=== PATIENT | female | born 1995 | race Two or more races ===

== ENCOUNTER 2022-03-14 17:12 | Emergency (ER) | payer SELFPAY ==
[~2022-03-14] VITALS: Ht 165.1 cm; Wt 54.4 kg
[2022-03-14 17:13] VITALS: BP 106/71
--- NOTE | 2022-03-14 17:15 | NUR ---
PATIENT BIBA TO BED 5.
--- NOTE | 2022-03-14 17:15 | NUR ---
26 F PATIENT PRESENTS TO ED WITH ALOC . PT IS AOX1; SCREAMING AND WANTS TO GO HOME. DENIES N/V/D; SKIN IS PINK/WARM/DRY; LUNGS CLEAR BL; HR EVEN AND REGULAR; PT DENIES ANY FEVER, CP, SOB, OR COUGH AT THIS TIME; DENIES PAIN AT THIS TIME; VSS; PATIENT POSITIONED FOR COMFORT; HOB ELEVATED; BEDRAILS UP X2; ON 4 POINT RESTRAINTS. BED DOWN. ER MD MADE AWARE OF PT STATUS. DENIES PMH DENIES MEDS NKA
[2022-03-14] MEDS ORDERED: MIDAZOLAM 5 MG/5 ML VIAL ONE (17:16)
[2022-03-14] MEDS ORDERED: MIDAZOLAM 5 MG/5 ML VIAL IM ONE (17:20)
--- NOTE | 2022-03-14 17:23 | NUR ---
ADMINISTERED VERSED 4MG IM PER ER MD ORDER.
[2022-03-14 17:52] LABS: BASOPHILS # (AUTO) 0.1 K/uL (0.00-0.22); MONOCYTES # (AUTO) 0.4 K/uL (0.8-1.0)
[2022-03-14 17:55] LABS: BASOPHILS % (AUTO) 0.7 % (0.0-2.0); EOSINOPHILS % (AUTO) 0.3 % (0.0-4.0); HEMATOCRIT 40.4 % (36-48); HEMOGLOBIN 13.7 g/dL (12.0-16.0); LYMPHOCYTES % (AUTO) 21.6 % (20.5-51.1); MEAN CORPUSCULAR HEMOGLOBIN 33 pg (27-31); MEAN CORPUSCULAR HGB CONC 34 g/dL (33-37); MONOCYTES % (AUTO) 4.1 % (1.7-9.3); NEUTROPHILS # (AUTO) 6.8 K/uL (1.8-7.7); NEUTROPHILS % (AUTO) 73.3 % (42.2-75.2); PLATELET COUNT (AUTO) 131 K/uL (140-450); RED CELL DISTRIBUTION WIDTH 15.7 % (11.6-13.7); WHITE BLOOD COUNT (AUTO) 9.3 K/uL (4.8-10.8)
[2022-03-14 18:10] LABS: ALBUMIN 3.7 g/dL (3.4-5.0); ANION GAP 14.9 (8-16); ASPARTATE AMINOTRANSFERASE 28 U/L (15-37); CHLORIDE 109 mmol/L (98-107); CREATININE 0.5 mg/dL (0.6-1.3); GFR ARICAN-AMERICAN 193 mL/min (>90); GLUCOSE 83 mg/dL (74-106); POTASSIUM 3.9 mmol/L (3.5-5.1); SODIUM SERUM 144 mmol/L (136-145); TOTAL BILIRUBIN 0.1 mg/dL (0.0-1.0); UREA NITROGEN, BLOOD 9 mg/dL (7-18)
[2022-03-14 18:13] LABS: ACETAMINOPHEN < 0.5 ug/ml (10-30); SALICYLATE < 2.8 mg/dL (2.8-20.0)
--- NOTE | 2022-03-14 19:13 | NUR ---
ENDORSED TO MANAGER RECRUITING ER NURSE FOR CONTINUITY OF CARE. PT IS STABLE.
--- NOTE | 2022-03-14 20:30 | NUR ---
PATIENT ELOPED FROM FACILITY. DISCHARGE INSTRUCTIONS NOT GIVEN TO PATIENT. DR. DOUGLASS NOTIFIED.
== END 2022-03-14 20:30 | disposition left against medical advice (07) ==
LOC: MED 17:12
DX: F10.129 Alcohol abuse with intoxication, unspecified (principal); R41.82 Altered mental status, unspecified
CPT/HCPCS: 36415; 80053; 84703; 85025; 96372; 99283; G0480; G0482; J2250

== ENCOUNTER 2022-03-20 21:54 | Emergency (ER) | payer SELFPAY ==
[~2022-03-20] VITALS: Ht 175.3 cm; Wt 54.4 kg
[2022-03-20 21:54] VITALS: BP 99/53
--- NOTE | 2022-03-20 21:54 | NUR ---
2148- PT HUNTER ALS. TAKEN TO BED 10
[2022-03-20] MEDS ORDERED: MIDAZOLAM 2 MG/2 ML VIAL ONE (22:00)
--- NOTE | 2022-03-20 22:04 | NUR ---
Dr. Cobos examining patient.
[2022-03-20] MEDS ORDERED: MIDAZOLAM 2 MG/2 ML VIAL IM ONE (22:50)
--- NOTE | 2022-03-20 23:00 | NUR ---
MOTHER TO BEDSIDE WITH PT
--- NOTE | 2022-03-20 23:33 | NUR ---
Dr. Cobos examining patient.
[2022-03-21] MEDS ORDERED: NACL 0.9% 1,000 ML IV ONE (00:55)
[2022-03-21 03:05] VITALS: BP 102/55
--- NOTE | 2022-03-21 03:05 | NUR ---
Patient discharged with v/s stable. Written and verbal after care instructions given and explained. Patient verbalized understanding. Wheel Chair Assisted with to car. All questions addressed prior to discharge. Advised to follow up with PMD.
== END 2022-03-21 03:05 | disposition home or self-care (01) ==
LOC: MED 21:54
DX: R41.82 Altered mental status, unspecified (principal); F10.129 Alcohol abuse with intoxication, unspecified; Y90.9 Presence of alcohol in blood, level not specified
CPT/HCPCS: 96360; 96372; 99283; J2250; J7030